=== PATIENT | male | born 1985 | race Caucasian/White ===

== ENCOUNTER 2019-05-11 08:46 | Emergency (ER) | payer MEDICAID ==
[~2019-05-11] VITALS: Ht 177.8 cm; Wt 77.3 kg
--- NOTE | 2019-05-11 09:42 | NUR ---
pt. resting in bed in no distress. currently drinking water to get a urine sample.
[2019-05-11 09:46] LABS: BASOPHILS # (AUTO) 0.1 X10'3 (0-0.2); BASOPHILS % (AUTO) 0.7 % (0-1); EOSINOPHILS # (AUTO) 0.2 X10'3 (0-0.9); EOSINOPHILS % (AUTO) 2.1 % (0-6); HEMATOCRIT 45.8 % (42.0-52.0); HEMOGLOBIN 15.6 g/dl (14.0-17.9); LYMPHOCYTES # (AUTO) 2.5 X10'3 (1.1-4.8); LYMPHOCYTES % (AUTO) 24.5 % (21-51); MEAN CORPUSCULAR HEMOGLOBIN 31.2 PG (27.0-31.0); MEAN CORPUSCULAR HGB CONC 34.2 g/dL (33.0-36.5); MEAN CORPUSCULAR VOLUME 91.4 FL (78-98); MEAN PLATELET VOLUME 8.5 FL (7.4-10.4); MONOCYTES # (AUTO) 0.6 X10'3 (0-0.9); MONOCYTES % (AUTO) 5.5 % (2-12); NEUTROPHILS # (AUTO) 6.9 X10'3 (1.8-7.7); NEUTROPHILS % (AUTO) 67.2 % (42-75); PLATELET COUNT 291 X10'3 (140-440); RED BLOOD COUNT 5.01 X10'6 (4.70-6.10); RED CELL DISTRIBUTION WIDTH 13.8 % (11.5-14.5); WHITE BLOOD COUNT 10.2 X10'3 (4.5-11.0)
[2019-05-11 10:19] LABS: ALANINE AMINOTRANSFERASE 25 U/L (12-78); ALBUMIN 3.8 G/DL (3.4-5.0); ALBUMIN/GLOBULIN RATIO 1.1 (1.1-1.5); ALKALINE PHOSPHATASE 95 IU/L (46-116); ANION GAP 5 (8-16); ASPARTATE AMINO TRANSFERASE 16 U/L (10-37); BILIRUBIN,TOTAL 0.3 MG/DL (0.1-1.0); BLOOD UREA NITROGEN 15 MG/DL (7-18); CALCIUM 8.9 MG/DL (8.5-10.1); CHLORIDE 104 MMOL/L (99-107); CREATININE 0.75 MG/DL (0.60-1.10); GLUCOSE 74 MG/DL (70-104); POTASSIUM 3.6 MMOL/L (3.5-5.1); SODIUM 140 MMOL/L (135-145); TOTAL CARBON DIOXIDE 31.4 MMOL/L (24-32); TOTAL PROTEIN 7.4 G/DL (6.4-8.2); eGFR > 90 ML/MIN
[2019-05-11 10:32] LABS: ETHANOL < 0.010 GM/DL (0.0-0.010)
[2019-05-11] MEDS ORDERED: NO HOME MEDS (10:32)
[2019-05-11 11:20] LABS: URINE AMPHETAMINE SCREEN POSITIVE (Neg); URINE BARBITUATE SCREEN NEGATIVE (Neg); URINE BENZODIAZEPINES SCREEN NEGATIVE (Neg); URINE CANNABINOID SCREEN POSITIVE (Neg); URINE COCAINE SCREEN NEGATIVE (Neg); URINE METHADONE SCREEN NEGATIVE (Neg); URINE OPIATE SCREEN NEGATIVE (Neg); URINE PHENCYCLIDINE SCREEN NEGATIVE (Neg)
--- NOTE | 2019-05-11 11:26 | NUR ---
PACKET FAXED TO [facility]
--- NOTE | 2019-05-11 11:53 | NUR ---
Patient transferred to ED overflow from main ED. Used bathroom and immediately laid down in bed with blanket over his head. Upon introduction, patient attempting to ignore requests to answer questions. When he did respond, his responses where one word answers. When asked how long he has been feeling this way he states "awhile", when pressed for a more definative time frame he again responds with "awhile". 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 State he lost everything, when asked if he lost loved ones he repeats "everything".
--- NOTE | 2019-05-11 13:17 | NUR ---
PT LAYING SUPINE, RESPIRATINS EVEN AND UNLABORED. NO DISTRESS NOTED AT THIS TIME.
--- NOTE | 2019-05-11 15:11 | NUR ---
Patient became very agitated when SCSW attempted to evaluate him. This chief writer spoke with him regarding the necessity of the interview, he apologized and stated he was having severe nicotine withdrawls, received order from physician for lozenges (per patient preference). Patient then agreed to speak with SW. Addendum: 05/11/19 at 1512 by VICKIE Patient requested we contact [facility] and ask for Ariana Doyle (ex-) who is aware of his previous medication regimine. states he has not been on his medications for over a year following his divorce "due to embarassment".
[2019-05-11] MEDS: NICOTINE POLACRILEX 2 MG LOZENGE BC PRN ×2 (15:18→20:43)
[2019-05-11] MEDS: LORazepam 1 MG tablet PO PRN ×2 (15:18→20:48)
--- NOTE | 2019-05-11 15:39 | NUR ---
Spoke with DELMIS Lockwood, remained calm and provided requested information. Decision was made to place him on a 5150 hold.
--- NOTE | 2019-05-11 18:33 | NUR ---
Assumed care of patient, pt. laying in bed at this time appears to be sleeping, rr even and unlabored.
--- NOTE | 2019-05-11 19:18 | NUR ---
Spoke with [facility] in [place] reguarding possible acceptance of pt., they will review pt. informantion with their MD. Pt. continues to sleep at this time, will continue to monitor.
--- NOTE | 2019-05-11 20:10 | NUR ---
Pt. accepted at [facility], however when notified pt. 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 He feels that going here will be a conflict of interest, notified [facility] and [facility] of this and awaiting outcome.
--- NOTE | 2019-05-11 20:30 | NUR ---
Nursing Note: Pt. able to eat 100% of his dinner and requests additional food r/t recent weight loss, snack provided and pt. voiced content. Affect is flat and pt. appears depressed, he reports S/I without a plan at this time. He also endorses A/V/HURTADO, however states, "I don't want to talk about it, I will talk to the doctor." Pt. reports paranoid delusions, states, "Everyone out there wants to hurt me, it's under investigation." RR are even and unlabored and pt. is cooperative with care. He requests PRN Nicotine lozenge and Ativan, administered with effectiveness.
--- NOTE | 2019-05-11 20:33 | NUR ---
Spoke to [facility] who reported that pt. coming to their facility would not be a conflict of interest because their faciltiy is separate from [employer] and all information will be kept confidential per HIPPA Violations. Reported this information to pt. who voiced understanding. Will notify [facility].
--- NOTE | 2019-05-11 21:00 | NUR ---
Pt. discharged to [facility] in [place], accepting MD is doctor Chahal. Report given to YUSEF Zapata. Pt. belongings invetoried and returned by modu. Pt. escorted to comins via courier driver and securtity.
[2019-05-11 21:26] VITALS: BP 117/82
== END 2019-05-11 21:30 ==
LOC: ER 08:47
DX: R45.851 Suicidal ideations (principal); R53.1 Weakness; R53.83 Other fatigue; F17.200 Nicotine dependence, unspecified, uncomplicated; F12.90 Cannabis use, unspecified, uncomplicated; F15.90 Other stimulant use, unspecified, uncomplicated; Z59.0 Homelessness; Z88.8 Allergy status to other drugs, medicaments and biological substances
CPT/HCPCS: 36415; 80053; 80305; 80320; 84443; 85025; 99285